=== PATIENT | male | born 1975 | race African-American/Black ===

== ENCOUNTER 2020-10-05 13:57 | Emergency (ER) | payer OTHER ==
[~2020-10-05] VITALS: Ht 175.3 cm; Wt 131.5 kg
[~2020-10-05 13:57] MED LIST: ACCUNEB SO1.25 MG/1 INH; AMARYL4 MG PO; AZITHROMYCIN 2250 MG PO; CEFDINIR300 MG PO; CRESTOR; DEMADEX20 MG PO; DILTIAZEM ER240 M1 PO; DOXYCYCLINE 10100 MG PO; DUONEB 2.5-0.5 M3 ML INH; GLUCOPHAGE1000 MG PO; HUMALOG100 UNIT/2 SUBQ; KEFLEX500 MG PO; LANTUS SUBQ; LEVAQUIN 500 M500 M2 PO; METFORMIN; NAPROSYN500 MG PO; NOHOMEMEDICATIONS; NORCO 5-325 TA1 EACH PO; PACERONE 200 M200 M1 PO; PREDNISONE 20 M20 MG PO; PROVENTIL; TOPROL XL100 MG PO; TYLENOL325 MG PO; VALIUM5 MG PO; VENTOLIN HFA 1818 GM INH; XARELTO20 MG PO
[2020-10-05 14:07] VITALS: BP 177/100
[2020-10-05 15:11] LABS: ABSOLUTE NEUTROPHILS 3.6 thou/uL (1.4-8.2); BASOPHILS 0.6 % (0.0-2.0); EOSINOPHILS 1.5 % (0.0-3.0); HEMATOCRIT 50.5 % (42.0-52.0); HEMOGLOBIN 15.9 gm/dL (14.0-18.0); LYMPHOCYTES 23.2 % (24.0-44.0); MCH 24.6 pg (26.0-34.0); MCHC 31.5 g/dL (28.0-37.0); MONOCYTES 9.1 % (1.0-8.0); PLATELET COUNT 200 thou/uL (150-400); POLYS 65.6 % (36.0-66.0); RBC 6.47 mil/uL (4.50-6.00); RDW 18.3 % (10.5-14.5); WBC 5.5 thou/uL (4.0-11.0)
[2020-10-05 15:31] LABS: ANION GAP 10 mmol/L (7-16); BUN 9 mg/dL (7-18); CALCIUM 8.5 mg/dL (8.5-10.1); CHLORIDE 100 mmol/L (98-107); CO2 28 mmol/L (21-32); CREATININE 1.2 mg/dL (0.7-1.3); GLUCOSE 129 mg/dL (74-106); POTASSIUM 3.8 mmol/L (3.5-5.1); SODIUM 138 mmol/L (136-145)
[2020-10-05 15:38] LABS: TROPONIN-I <0.06 ng/mL (<0.06)
[2020-10-05 17:31] LABS: INR 1.3; PROTIME 13.5 Seconds (9.3-11.4)
[2020-10-05] MEDS ORDERED: ENOXAPARIN150 MG/1 M SUBQ (20:28)
--- NOTE | 2020-10-05 20:35 | NUR ---
PT REFUSING TO CHANGE INTO GOWN OR ALLOW VITALS TO BE MEASURES. PT UPSET THAT HE SAT IN WAITING ROOM FOR 1.5 HOURS PRIOR TO BEING CHECKED IN, STATING THAT NOONE WAS AT DESK WHEN HE WALKED IN AND ONLY ONE TIME A NURSE ASKED IF HE WAS A DIFFERENT PT NAME DID NOT ASK IF HE NEEDED TO BE CHECKED IN. PT ALSO BELIEVES THAT A STAFF MEMBER ASKED IF SECURITY WAS NEEDED DUE TO HIS RACE WHEN HE WAS ONLY VERBALIZING HIS UPSET ABOUT BEING IN THE WAITING ROOM AND IN TRIAGE FOR 6 -[address]. [address]SELF AND [address] VALDERRAMA SPOK WITH PT AT [facility] TRYING TO CONVINCE HIM TO STAY AND BE ADMITTED. PT CHOSING TO LEAVE AMA AND GO HOME TO SPEAK WITH HIS . I PROVIDED PT MY NAME AND THE DIRECT NUMBER TO THE ER TO CALL WHEN HE DECIDED TO RETURN. PT ENCOURAGED REPEATEDLY TO RETURN TO THE ER AFTER DISCUSSING THE SITUATION WITH HIS .
[2020-10-05 21:06] VITALS: BP 177/100
--- NOTE | 2020-10-06 07:03 | EKG ---
[facility] [place] [address] ELECTROCARDIOGRAM REPORT Name: BRISA LAWSON Room #: [facility]#: [id number] Admission: 10/05/20 Attend Phys: Discharge: 10/05/20 Date of : 71 Report #: [id number] [facility] Test Date: 2020-10-05 Test Time: 17:27:20 Pat Name: BRISA LAWSON Department: Room: 170 5 Gender: M Coater Slate: SHAHRZAD : 1975 Requested By: Lazarus Wang Order Number: [id number] MD: Lino Abebe Measurements Intervals [place] Rate: 94 P: 33 ID: 148 QRS: -19 QRSD: 93 T: 91 QT: 371 QTc: 464 Interpretive Statements Sinus rhythm Probable left atrial enlargement Abnormal R-wave progression, late transition Probable left ventricular hypertrophy J Point elev, probable normal early repol pattern Compared to ECG 10/05/2020 17:12:35 Myocardial infarct finding no longer present ST (T wave) deviation still present Electronically Signed On 10-06-2020 7:03:20 CDT by Lino Abebe [email or web address] <ELECTRONICALLY SIGNED> By: Lino Abebe MD, FACC 10/06/20 0703 [id number] Lino Abebe MD, [facility] /EPI
--- NOTE | 2020-10-06 07:03 | EKG ---
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: SHAHRZAD : 1975 Requested By: Haja Smallwood Order Number: [id number] MD: Lino Abebe Measurements Intervals [place] Rate: 91 P: 3 MO: 136 QRS: -18 QRSD: 93 T: 94 QT: 371 QTc: 457 Interpretive Statements Sinus rhythm Abnormal R-wave progression, late transition Consider left ventricular hypertrophy Nonspecific T abnrm, anterolateral leads Artifact in lead(s) II,III,aVR,aVL,aVF Compared to ECG 12/12/2015 04:07:33 ST (T wave) deviation now present T-wave abnormality no longer present Electronically Signed On 10-06-2020 7:03:06 CDT by Lino Abebe [email or web address] <ELECTRONICALLY SIGNED> By: Lino Abebe MD, FAC 10/06/20 0703 11 11 Lino Abebe MD, FAC /EPI
== END 2020-10-05 20:35 | disposition left against medical advice (07) ==
LOC: ER 13:57 → EROBS 20:05 → ER 20:35
PROVIDERS: Emergency Medicine; Nurse Practitioner
DX: I26.99 Other pulmonary embolism without acute cor pulmonale (principal); I11.0 Hypertensive heart disease with heart failure; I50.9 Heart failure, unspecified; E11.9 Type 2 diabetes mellitus without complications; J45.909 Unspecified asthma, uncomplicated; Z87.891 Personal history of nicotine dependence; Z79.4 Long term (current) use of insulin; Z79.899 Other long term (current) drug therapy

== ENCOUNTER 2020-10-21 22:42 | Inpatient (IN) | payer OTHER ==
[~2020-10-21] VITALS: Ht 180.3 cm; Wt 171.0 kg
[~2020-10-21 22:42] MED LIST changes: +ENOXAPARIN150 MG/1 M SUBQ
[2020-10-21 23:32] LABS: BE(vivo) 5.1 mmol/L (-2 to +3); HCO3 32.2 mmol/L (22.0-26.0); PCO2 57.7 mmHg (35.0-45.0); pH 7.365 (7.360-7.450); sO2 81.2 % (92.0-98.0)
[2020-10-21 23:44] LABS: PO2 47.7 mmHg (80.0-100.0)
[2020-10-21 23:50] LABS: ABSOLUTE NEUTROPHILS 6.6 thou/uL (1.4-8.2); BASOPHILS 0.9 % (0.0-2.0); EOSINOPHILS 0.9 % (0.0-3.0); HEMATOCRIT 47.3 % (42.0-52.0); HEMOGLOBIN 15.4 gm/dL (14.0-18.0); LYMPHOCYTES 15.6 % (24.0-44.0); MCH 25.6 pg (26.0-34.0); MCHC 32.7 g/dL (28.0-37.0); MCV 78.5 fL (80.0-100.0); MONOCYTES 8.1 % (1.0-8.0); PLATELET COUNT 196 thou/uL (150-400); POLYS 74.5 % (36.0-66.0); RBC 6.02 mil/uL (4.50-6.00); RDW 17.9 % (10.5-14.5); WBC 8.9 thou/uL (4.0-11.0)
[2020-10-22] VITALS (8 sets, daily range): BP systolic 127–175; BP diastolic 44–97
[2020-10-22 00:19] LABS: APTT 27.8 Seconds (24.5-32.8); INR 1.58; PROTIME 16.9 Seconds (9.3-11.4)
[2020-10-22 00:22] LABS: ANION GAP 8 mmol/L (7-16); BUN 16 mg/dL (7-18); CALCIUM 8.6 mg/dL (8.5-10.1); CHLORIDE 104 mmol/L (98-107); CO2 32 mmol/L (21-32); CREATININE 1.6 mg/dL (0.7-1.3); GLUCOSE 309 mg/dL (74-106); POTASSIUM 3.3 mmol/L (3.5-5.1); SODIUM 144 mmol/L (136-145)
[2020-10-22 00:30] LABS: ALBUMIN 3.4 g/dL (3.4-5.0); SGOT 27 U/L (15-37); SGPT 46 U/L (30-65); TOTAL BILIRUBIN 0.5 mg/dL (0.2-1.0); TROPONIN-I <0.06 ng/mL (<0.06)
--- NOTE | 2020-10-22 01:37 | NUR ---
HAND OFF TOOL FAXED TO [facility]
[2020-10-22] MEDS ORDERED: LISINOPRIL20 MG PO (01:56)
[2020-10-22] MEDS ORDERED: GLUCOPHAGE1000 MG PO (01:57)
[2020-10-22] MEDS ORDERED: JANTOVEN7.5 MG PO (02:00)
[2020-10-22] MEDS ORDERED: WARFARIN SODIUM10 MG PO (02:00)
--- NOTE | 2020-10-22 02:31 | NUR ---
PT IS AN ADMIT FROM EMERGENCY ROOM FOR ADMISSION FOR PULMONARY EMBOLISM. PT SAID HE WAS HERE FOR A COUPLE OF WEEKS AGO GOT A SCRIPT FOR LOVENOX BUT COULDNT AFORD TO GET IT FILLED $5000. ULTRASOUND AT BEDSIDE. LUNGS ARE CLEAR ON 4 LITERS NASAL CANULA. BOWEL SOUNDS ACTIVE X4. ABDOMEN IS ROUND. 2/2 PULSES NO EDEMA NOTED. DENIES ANY PAIN AT THIS TIME. CONSENT SIGNED FOR ADMISSION AND PLAN OF CARE DISCUSSED AND ADMIT TEACHING DONE. AND CALL LIGHT WITHIN REACH IF NEEDS ASSISTANCE PER NURSING.
[2020-10-22 03:31] LABS: HEMATOCRIT 44.3 % (42.0-52.0); HEMOGLOBIN 13.7 gm/dL (14.0-18.0); MCH 24.6 pg (26.0-34.0); MCV 79.3 fL (80.0-100.0); RBC 5.59 mil/uL (4.50-6.00); RDW 18.8 % (10.5-14.5); WBC 7.2 thou/uL (4.0-11.0)
[2020-10-22 03:57] LABS: ANION GAP 4 mmol/L (7-16); BUN 20 mg/dL (7-18); CALCIUM 8.2 mg/dL (8.5-10.1); CHLORIDE 107 mmol/L (98-107); CHOLESTEROL 165 mg/dL (<200); CO2 34 mmol/L (21-32); CREATININE 1.4 mg/dL (0.7-1.3); GLUCOSE 207 mg/dL (74-106); HDL CHOLESTEROL 37 mg/dL (>40); LDL CHOLESTEROL 104 mg/dL (<100); POTASSIUM 3.6 mmol/L (3.5-5.1); SODIUM 145 mmol/L (136-145); TC:HDL 4.5 Ratio (Not establshd); TRIGLYCERIDE 121 mg/dL (<150); VLDL 24 mg/dL (<40)
[2020-10-22 04:12] LABS: SERUM ASSESSMENT Clear
--- NOTE | 2020-10-22 09:59 | 2DMMODE ---
[facility] [address] [place] [address] 2 D/M-MODE ECHOCARDIOGRAM Name: BRISA LAWSON Room #: 200-I ADM IN [facility].#: [id number] Admission: 10/22/20 Attend Phys: Ammon Kelley MD Discharge: Date of : 71 Report #: [id number] THIS REPORT FOR: cc: NAVYA Galeano family physician/PCP NAVYA - [place] family physician/PCP Lino Abebe MD [facility] ~ APPROVED REPORT Study performed: 10/22/2020 09:13:25 EXAM: Comprehensive 2D, Doppler, and color-flow Echocardiogram Patient Location: Bedside Room #: 200 Status: routine BSA: 2.76 HR: 103 bpm BP: 127/74 mmHg Rhythm: Sinus Tach Other Information Study Quality: Adequate Technically limited study due to morbid obesity and heavy snoring. Indications Shortness of breath. Evaluate for CHF. Hx: PE 2 weeks ago, HTN, DM, HLD. 2D Dimensions RVDd: 37.61 mm IVSd: 14.86 (7-11mm) LVOT Diam: 20.90 (18-24mm) LVDd: 55.28 mm PWd: 14.66 (7-11mm) Ascending Ao: 35.54 (22-36mm) LVDs: 37.52 (25-40mm) Left Atrium: 51.30 (27-40mm) Aortic Root: 32.70 mm Volumes Left Atrial Volume (Systole) Single Plane 4CH: 79.84 mL Single Plane 2CH: 82.87 mL Aortic Valve AoV Peak Gomez.: 1.67 m/s AO Peak Gr.: 11.14 mmHg LVOT Max P.82 mmHg [facility] [address] [place] [address] 2 D/M-MODE ECHOCARDIOGRAM Name: VARGHESE LAWSONERIKDICKSON Dimitri Room #: 200-I [facility] IN [facility]#: [id number] Admission: 10/22/20 Attend Phys: Thai Mabry Discharge: Date of : 71 Report #: [id number] LVOT Max V: 1.21 m/s YANNA Vmax: 2.48 cm2 Mitral Valve E/A Ratio: 1.3 MV Decel. Time: 141.64 ms MV E Max Gomez.: 1.26 m/s MV A Gomez.: 0.95 m/s MV PHT: 41.08 ms IVRT: 55.36 ms Pulmonary Valve PV Peak Gomez.: 1.47 m/s PV Peak Gr.: 8.63 mmHg Tricuspid Valve TR Peak Gomez.: 3.59 m/s RAP Estimate: 5.00 mmHg TR Peak Gr.: 52.00 mmHg PA Pressure: 57.00 mmHg Left Ventricle The left ventricle is normal size. There is normal LV segmental wall motion. Moderate concentric left ventricular hypertrophy. Left ventricular systolic function is normal. LVEF is 60-65%. Moderate diastolic dysfunction is present. Right Ventricle The right ventricle is normal size. The right ventricular systolic function is normal. Atria Left atrium is dilated. The right atrium size is normal. Aortic Valve The aortic valve is normal in structure. No aortic regurgitation is present. There is no aortic valvular stenosis. Mitral Valve The mitral valve is normal in structure. Mild mitral annular calcification. There is no mitral valve regurgitation noted. No evidence of mitral valve stenosis. Tricuspid Valve The tricuspid valve is normal in structure. Mild tricuspid regurgitation. Estimated PAP is 55-60mmHg. Pulmonic Valve [facility] [place] [address] 2 D/M-MODE ECHOCARDIOGRAM Name: BRISA LAWSON Room #: 200-I ADM IN ..#: [id number] Admission: 10/22/20 Attend Phys: Thai Mabry Discharge: Date of : 71 Report #: [id number] The pulmonary valve is normal in structure. Trace pulmonic regurgitation. Great Vessels The aortic root is normal in size. The ascending aorta is normal in size. IVC is normal in size and collapses >50% with inspiration. Pericardium There is no pericardial effusion. <Conclusion> Normal left ventricular size with moderate concentric hypertrophy Ejection fraction 60% Normal right ventricular size/function Left atrium mildly dilated Color-flow Doppler study was performed of the aortic/mitral/tricuspid/pulmonary valve Normal aortic aortic valve structure and function Mild mitral annular calcification Mild tricuspid valve insufficiency Moderate pulmonary hypertension PA pressure estimated at 55-60 mmHg Normal aortic root size No pericardial effusion. <ELECTRONICALLY SIGNED> By: Lino Abebe MD, FACC 10/22/20958 8 8 Lino Abebe MD, FACC /INF
--- NOTE | 2020-10-22 14:51 | EKG ---
[address] [address] ELECTROCARDIOGRAM REPORT Name: BRISA LAWSON Room #: 200-I ADM IN ..#: [id number] Admission: 10/22/20 Attend Phys: Ammon Kelley MD Discharge: Date of : 71 Report #: [id number] [facility] ED Test Date: 2020-10-21 Test Time: 22:53:21 Pat Name: BRISA LAWSON Department: Room: 200 Gender: M Record Label Intern: KIM : 1975 Requested By: Chio Escalera Order Number: [id number] MD: Jerome Jones Measurements Intervals [place] Rate: 114 P: 47 WV: 145 QRS: -18 QRSD: 94 T: 105 QT: 342 QTc: 472 Interpretive Statements Sinus tachycardia Borderline left axis deviation Abnormal R-wave progression, late transition Abnormal T, consider ischemia, lateral leads Compared to ECG 10/05/2020 17:27:20 Electronically Signed On 10-22-2020 14:51:37 CDT by Jerome Jones [email or web address] <ELECTRONICALLY SIGNED> By: Jerome Jones MD 10/22/20 1451 [id number] [id number] Jerome Jones MD /EPI
--- NOTE | 2020-10-22 17:01 | NUR ---
Case opened to follow for dc planning. Business Planning Manager visited with the pt and his at bedside. The pt is currently not working and reports limited health care interventions due to no ins and financial stress. He is considering applying for [place]ablity and [place] medicaid. [employer] to see. He is being treated for PE and was given a eloquis coupon for 30 day free and guided on calling them for ongoing pt assistance for coverage as he may need it for 3-6 months. Pt also given [facility] packet and reveiwed options. Pt does not want to use [facility] services but may consider [facility] or [facility] clinic. knowlegable and notes the pt does not like to go to the doctors office. The pt reports he is indep with gait and adl's but often sob and needs rest breaks. is supportive and will encourage f/u care and compliance at dc. Support provided.
--- NOTE | 2020-10-22 18:03 | NUR ---
PATIENT IS PROGRESSING TOWARDS OUTCOME GOALS HIS O2 IS DOWN TO 2L/NC. DYSPNEA NOTED WITH LONG CONVERSATIONS.
[2020-10-23 01:06] LABS: GLYCOHEMOGLOBIN (HGB A1C) 8.5 % (4.8-5.6)
--- NOTE | 2020-10-23 03:55 | NUR ---
PT IS ALERT AND ORIENTED X4. LUNGS ARE CLEAR TO DIMINSIHED. NOT SHORT OF BREATH BUT OVERNIGHT OX2 SATURATION 50-70 ON HIS ON CPAP MACHINE. SO RESPIRATORY AND HIM SWITCHED HIM OVER TO BIPAP AND SLEEPING WITH STABLE SATURATION NOW AT 98 PERCENT AFTER THAT. CALL LIGHT WITHIN REACH. DID NOT LIKE ONE OF THE RESPIRATORY THEARPIST DURING THE NIGHT WITH CHANGES IN CARE. AND WANTS TO FOLLOW A COMPLAINT. I DID EXPLAIN HE HAS A PULMONARY EMBOLI IN HIS LUNG AND IF HE NEEDS BIPAP HE NEEDS IT. CALL LIGHT WITHIN REACH
[2020-10-23 03:56] VITALS: BP 127/52
[2020-10-23 05:07] LABS: INR 1.57; PROTIME 16.8 Seconds (9.3-11.4)
[2020-10-23 05:29] LABS: CALCIUM 8.3 mg/dL (8.5-10.1); CREATININE 1.2 mg/dL (0.7-1.3); POTASSIUM 3.7 mmol/L (3.5-5.1)
[2020-10-23 07:05] VITALS: BP 153/75
[2020-10-23 11:30] VITALS: BP 150/88
[2020-10-23 15:50] VITALS: BP 106/86
--- NOTE | 2020-10-23 18:37 | NUR ---
PT ALERT AND ORIENTED. UP IN THE CHAIR. VSS. RT TREATMENT PROVIDED ORDERED. NO RESPIRATORY DISTRESS NOTED. NO CONCERNS AT THIS TIME.
[2020-10-23 19:40] VITALS: BP 144/61
--- NOTE | 2020-10-24 02:53 | NUR ---
assessments as charted, denies pain or sob, sr on tele, no needs at this time, will continue to monitor and follow poc
[2020-10-24 05:10] VITALS: BP 148/84
[2020-10-24 05:19] LABS: ABSOLUTE NEUTROPHILS 3.2 thou/uL (1.4-8.2); BASOPHILS 0.9 % (0.0-2.0); EOSINOPHILS 1.2 % (0.0-3.0); HEMATOCRIT 44.6 % (42.0-52.0); HEMOGLOBIN 14.1 gm/dL (14.0-18.0); LYMPHOCYTES 26.2 % (24.0-44.0); MCH 24.8 pg (26.0-34.0); MCHC 31.6 g/dL (28.0-37.0); MCV 78.4 fL (80.0-100.0); MONOCYTES 9.1 % (1.0-8.0); PLATELET COUNT 162 thou/uL (150-400); POLYS 62.6 % (36.0-66.0); RBC 5.69 mil/uL (4.50-6.00); RDW 18.2 % (10.5-14.5); WBC 5.1 thou/uL (4.0-11.0)
[2020-10-24 05:33] LABS: INR 1.89
[2020-10-24 05:38] LABS: CALCIUM 8.2 mg/dL (8.5-10.1); CREATININE 1.3 mg/dL (0.7-1.3); MAGNESIUM 1.8 mg/dL (1.8-2.4); POTASSIUM 3.1 mmol/L (3.5-5.1)
[2020-10-24 07:45] VITALS: BP 139/96
[2020-10-24 11:25] VITALS: BP 139/78
[2020-10-24 20:30] VITALS: BP 144/76
[2020-10-25 04:45] VITALS: BP 116/82
[2020-10-25 04:56] LABS: INR 1.98; PROTIME 20.9 Seconds (9.3-11.4)
[2020-10-25 04:59] LABS: CALCIUM 8.1 mg/dL (8.5-10.1); CREATININE 1.4 mg/dL (0.7-1.3); POTASSIUM 3.5 mmol/L (3.5-5.1)
--- NOTE | 2020-10-25 06:20 | NUR ---
PATIENT IS VERY IRRITABLE AND DID NOT LIKE THIS RN.PT WILL NOT TAKE ANY EXPLANATION OR RATIONALE.MONITOR SHOWS SR.POC CONTINUED.
[2020-10-25 08:22] VITALS: BP 148/86
[2020-10-25 12:39] VITALS: BP 150/92
--- NOTE | 2020-10-25 15:45 | NUR ---
Patient reports he has home oxygen at home and concentrator. He cannot recall oxygen company and reports its out of [facility]. He reports PCP out of [facility] Dr Bain. Patient questioned if discharge today and who knows either phys academic tutor. Patient stated he is getting "the run around here." He asks again if being discharged. Alerted will ask phys. Patient becoming irate and stated "how high do i need to go." patient referring to he has spoken to patient experience director and RN regarding communication. Patient becoming hostile. Left room and notified RN. Per phys and RN patient leaving AMA.
--- NOTE | 2020-10-25 16:12 | NUR ---
ASSESSMENT CHARTED. PT ALERT AND ORIENTED. REPORT NOT BEING HAPPY WITH CARE. PT STATED THAT NOBODY IS EXPLAINING HIS PLAN OF CARE. DR. MIXON AWARE. EXPLAINED TO PT ABOUT HIS PLAN OF CARE AND DISCHARGE PLAN. PT NOT HAPPY WITH DR. MIXON'S EXPLANATION OF HIS DISCHARGE PLAN. PT THEN REQUESTED TO LEAVE AMA. THIS NURSE EXPLAINED TO PT ABOUT THE RULES AND REGULATIONS OF LEAVING AMA. PATIENT AND VERBERLISED UNDERSTANDING. DR. MARIE, ETHNOLOGY TEACHER, SPONGE MAKER, AND UNIT NURSE ENTRY LEVEL ACCOUNTANT AWARE. PATIENT LEFT THE FACILITY ACCOMPANIED BY THE .
== END 2020-10-25 16:32 | disposition left against medical advice (07) | DRG 175 ==
LOC: ER 22:42 → 2N 10-22 01:04 → EROBS 10-22 01:04 → 2N 10-22 02:01
PROVIDERS: Internal Medicine; Nurse Practitioner Family; ADMIT Hospitalist; ATTEND Hospitalist
PROC: 5A09357 Assistance with Respiratory Ventilation, Less than 24 Consecutive Hours, Continuous Positive Airway Pressure (ICD-10-PCS; principal; 2020-10-22)
PROC: 5A09357 Assistance with Respiratory Ventilation, Less than 24 Consecutive Hours, Continuous Positive Airway Pressure (ICD-10-PCS; 2020-10-23)
PROC: 5A09357 Assistance with Respiratory Ventilation, Less than 24 Consecutive Hours, Continuous Positive Airway Pressure (ICD-10-PCS; 2020-10-24)
PROC: 5A09357 Assistance with Respiratory Ventilation, Less than 24 Consecutive Hours, Continuous Positive Airway Pressure (ICD-10-PCS; 2020-10-25)
DX: I26.99 Other pulmonary embolism without acute cor pulmonale (principal); J96.01 Acute respiratory failure with hypoxia; I50.31 Acute diastolic (congestive) heart failure; J96.02 Acute respiratory failure with hypercapnia; I50.33 Acute on chronic diastolic (congestive) heart failure; I82.492 Acute embolism and thrombosis of other specified deep vein of left lower extremity; E66.2 Morbid (severe) obesity with alveolar hypoventilation; Z68.43 Body mass index [BMI] 50.0-59.9, adult; N17.9 Acute kidney failure, unspecified; I11.0 Hypertensive heart disease with heart failure; J45.909 Unspecified asthma, uncomplicated; E78.5 Hyperlipidemia, unspecified; E88.81 Metabolic syndrome and other insulin resistance; E11.65 Type 2 diabetes mellitus with hyperglycemia; Z53.29 Procedure and treatment not carried out because of patient's decision for other reasons; Z87.891 Personal history of nicotine dependence; Z86.718 Personal history of other venous thrombosis and embolism
CPT/HCPCS: 10081

== ENCOUNTER 2020-11-12 00:29 | Inpatient (IN) | payer OTHER ==
[2020-11-12] VITALS (8 sets, daily range): BP systolic 118–196; BP diastolic 42–103
[~2020-11-12] VITALS: Ht 182.9 cm; Wt 170.1 kg
[~2020-11-12 00:29] MED LIST changes: +JANTOVEN7.5 MG PO; +LISINOPRIL20 MG PO; +WARFARIN SODIUM10 MG PO
[2020-11-12 01:14] LABS: ABSOLUTE NEUTROPHILS 4.9 thou/uL (1.4-8.2); BASOPHILS 0.6 % (0.0-2.0); EOSINOPHILS 1.1 % (0.0-3.0); HEMATOCRIT 47.1 % (42.0-52.0); HEMOGLOBIN 14.7 gm/dL (14.0-18.0); LYMPHOCYTES 13.5 % (24.0-44.0); MCH 25.1 pg (26.0-34.0); MCHC 31.1 g/dL (28.0-37.0); MCV 80.6 fL (80.0-100.0); MONOCYTES 10.1 % (1.0-8.0); PLATELET COUNT 197 thou/uL (150-400); POLYS 74.7 % (36.0-66.0); RBC 5.84 mil/uL (4.50-6.00); RDW 19.1 % (10.5-14.5); WBC 6.5 thou/uL (4.0-11.0)
[2020-11-12] MEDS ORDERED: FUROSEMIDE 40 M40 M1 PO (01:27)
[2020-11-12] MEDS ORDERED: BREO ELLIPTA 11 EACH INH (01:28)
[2020-11-12] MEDS ORDERED: SPIRONOLACTONE25 MG PO (01:28)
[2020-11-12 01:35] LABS: ANION GAP 5 mmol/L (7-16); BUN 14 mg/dL (7-18); CALCIUM 8.7 mg/dL (8.5-10.1); CHLORIDE 105 mmol/L (98-107); CO2 36 mmol/L (21-32); CREATININE 1.4 mg/dL (0.7-1.3); GLUCOSE 193 mg/dL (74-106); POTASSIUM 3.8 mmol/L (3.5-5.1); SODIUM 146 mmol/L (136-145)
[2020-11-12 01:47] LABS: ALBUMIN 3.4 g/dL (3.4-5.0); SGOT 18 U/L (15-37); SGPT 53 U/L (16-63); TOTAL BILIRUBIN 0.5 mg/dL (0.2-1.0); TOTAL PROTEIN 8.3 g/dL (6.4-8.2); TROPONIN-I <0.06 ng/mL (<0.06)
[2020-11-12 02:19] LABS: BE(vivo) 5.5 mmol/L (-2 to +3); HCO3 34.6 mmol/L (22.0-26.0); PCO2 VENOUS 72.7 mmHg (41.0-51.0); PO2 VENOUS 54.9 mmHg (35.0-45.0)
[2020-11-12 02:48] LABS: APTT 28.2 Seconds (24.5-32.8); INR 1.41; PROTIME 15.1 Seconds (10.5-12.1)
[2020-11-12 02:52] LABS: URINE BILIRUBIN NEGATIVE (Negative); URINE BLOOD 1+ (Negative); URINE CLARITY CLEAR; URINE COLOR YELLOW; URINE GLUCOSE-RANDOM* NEGATIVE (Negative); URINE KETONES NEGATIVE (Negative); URINE LEUKOCYTES-REFLEX NEGATIVE (Negative); URINE NITRITE-REFLEX NEGATIVE (Negative); URINE PROTEIN (DIPSTICK) 2+ (Negative); URINE SPECIFIC GRAVITY >= 1.030 (1.005-1.035); URINE UROBILINOGEN 0.2 E.U./dl (0.2-1.0)
[2020-11-12 03:13] LABS: BACTERIA-REFLEX 1-9 Few /HPF (None Seen); CRYSTALS None Seen /LPF (None Seen); HYALINE CASTS 0-3 Few /LPF (None Seen); MUCUS 0-3 Light strn/LPF (None Seen); SQUAMOUS 0-3 Few /LPF (0-3); URINE RBC 1-2 Rare /HPF (NONE SEEN); URINE WBC-REFLEX 0-5 Rare /HPF (0-5)
--- NOTE | 2020-11-12 06:17 | NUR ---
PATIENT WAS RECIEVED A ADMIT FROM ER. PATIENT WAS ASSESSED AND MEDS WERE PASSED. PATIENT BECAME VERY DISENGAGED AND WOULD NOT ANSWER ANY MORE QUESTIONS. THIS STARTED WITH HIS OBJECTING ABOUT THE ACCURATENESS OF THE BED SCALE. NURSING GOT THE STAND UP SCALE AND THE RESULTS WERE THE SAME. THAT MADE HIM MADDER. CHARGE NURSE WAS ABLE TO HELP FINISH THE ADMISSION AND GAVE THE MEDS. THIS IS RECORDED TO HELP NURSING MANAGE HIS CARE.
--- NOTE | 2020-11-12 07:04 | EKG ---
[address] [place] [address] ELECTROCARDIOGRAM REPORT Name: BRISA LAWSON Room #: 211-P ADM IN .R.#: [id number] Admission: 11/12/20 Attend Phys: Rigoberto Chatterjee MD Discharge: Date of : 71 Report #: [id number] [facility] ED Test Date: 2020-11-12 Test Time: 00:44:29 Pat Name: BRISA LAWSON Department: Room: 211 Gender: M Innersole Maker: UMANG : 1975 Requested By: Dick Stahl Order Number: [id number] : Lino Abebe Measurements Intervals [place] Rate: 102 P: 28 [place]: 141 QRS: 11 QRSD: 97 T: 94 QT: 372 QTc: 485 Interpretive Statements Sinus tachycardia Nonspecific T abnormalities, lateral leads ST elev, probable normal early repol pattern Borderline prolonged QT interval Baseline wander in lead(s) II,III,aVF,V1,V2,V5,V6 Compared to ECG 10/21/2020 22:53:21 ST (T wave) deviation now present Possible ischemia no longer present T-wave abnormality still present Electronically Signed On 11-12-2020 7:03:51 CDT by Lino Abebe [email or web address] <ELECTRONICALLY SIGNED> By: Lino Abebe MD, [facility] 11/12/20 0703 Lino Abebe MD, [facility] /EPI
--- NOTE | 2020-11-12 09:16 | NUR ---
ASSUMED PT CARE AT 0700. PT RESTING. AT 0800 ASSESSMENT PERFORMED CHARTED. PT WOKE UP LOOKED AT RN AND WOULDNT ANSWER QUESTIONS. VSS. WILL CONTINUE TO MONITOR AND FOLLOW POC.
--- NOTE | 2020-11-12 11:47 | NUR ---
PT RESTING AT THIS TIME. PT VOICES NO CONCERNS.
--- NOTE | 2020-11-12 15:02 | NUR ---
Case opened to follow for dc planning. Pt known to cm from two recent admissions in this month. He lives at home with his Neva and typically refers to her for any discussions regarding finances and insurance. The [employer] liason has visit with him and he told them to call his Neva who is out of town til next week. He did sign the auth forms and they will work to see if he can get his [place] medicaid re-instated. [facility] and the listing was provided to them for f/u. He was given a coupon card for eloquis for a PE but is now on coumadin. They are familiar with [employer] $4 med list. His is knowledgable but pt is not always compliant with f/u care and meds. He has threatened to leave AMA and wants to be left alone. He is now on 6liters of o2 and being diuresed. He is up ad kar to the bathroom. Cm to follow along. We will reassess Sunday if here and can vouch meds at dc if needed. He should have some of them from his previous dc. Will follow.
--- NOTE | 2020-11-12 16:48 | NUR ---
PT RESTING. PT IS CALM AND COOPERATIVE AT THIS TIME. VSS. WILL CONTINUE TO MONITOR AND FOLLOW POC.
--- NOTE | 2020-11-13 03:14 | NUR ---
PROGRESS PT A/O X4. SLEEPING BUT AWAKENS TO VERBAL STIMULI. ON 6 LITERS O2 VIA NC WITH SATS IN THE MID TO UPPER 90'S. CPAP APPLIED AT HS WITH CONTINUOUS SAT MONITOR. PT PULLING AT AND DISRUPTING CPAP ON AND OFF THROUGHOUT SHIFT SATS DROPPING TO 75% MASK REAPPLIED AND ADJUSTED NEEDED, ENCOURAGED PT TO LEAVE IN PLACE. UP AD DEBBIE, VSS LUNGS CLEAR BUT DIMINISHED PT'S ABDOMEN RISING AND FALLING WITH EACH BREATH. PT DENIES PAIN OR ANY OTHER NEEDS. CONTINUE TO MONITOR.
[2020-11-13 03:43] VITALS: BP 143/81
[2020-11-13 12:17] VITALS: BP 141/48
== END 2020-11-13 14:22 | disposition home or self-care (01) | DRG 291 ==
LOC: ER 00:29 → EROBS 02:54 → 2N 03:49
PROVIDERS: Emergency Medicine; ADMIT Hospitalist; ATTEND Hospitalist
PROC: 5A09357 Assistance with Respiratory Ventilation, Less than 24 Consecutive Hours, Continuous Positive Airway Pressure (ICD-10-PCS; principal; 2020-11-12)
PROC: 5A09357 Assistance with Respiratory Ventilation, Less than 24 Consecutive Hours, Continuous Positive Airway Pressure (ICD-10-PCS; 2020-11-13)
DX: I11.0 Hypertensive heart disease with heart failure (principal); J96.21 Acute and chronic respiratory failure with hypoxia; I26.99 Other pulmonary embolism without acute cor pulmonale; J96.22 Acute and chronic respiratory failure with hypercapnia; Z68.43 Body mass index [BMI] 50.0-59.9, adult; I50.30 Unspecified diastolic (congestive) heart failure; E11.9 Type 2 diabetes mellitus without complications; J45.909 Unspecified asthma, uncomplicated; E66.01 Morbid (severe) obesity due to excess calories; G47.33 Obstructive sleep apnea (adult) (pediatric); E78.5 Hyperlipidemia, unspecified; Z20.822 Contact with and (suspected) exposure to COVID-19; F17.210 Nicotine dependence, cigarettes, uncomplicated; I27.20 Pulmonary hypertension, unspecified; E87.70 Fluid overload, unspecified; Z86.718 Personal history of other venous thrombosis and embolism; Z71.6 Tobacco abuse counseling
CPT/HCPCS: 10081